=== PATIENT | female | born 1955 | race Caucasian/White ===

== ENCOUNTER 2017-09-26 11:52 | Emergency (ER) | payer OTHER ==
[~2017-09-26] VITALS: Ht 157.5 cm; Wt 80.5 kg
[2017-09-26] MEDS ORDERED: LEVOTHYROXIN0.088 MG PO (12:03)
[2017-09-26] MEDS ORDERED: ACETAMINOPHEN325 M1 (12:14)
[2017-09-26] MEDS ORDERED: GOOD NEIGHBOR200 M3 PO (12:14)
[2017-09-26 13:57] VITALS: BP 174/76
== END 2017-09-26 13:58 | disposition home or self-care (01) ==
LOC: ED 11:52
DX: S20.212A Contusion of left front wall of thorax, initial encounter (principal); S40.012A Contusion of left shoulder, initial encounter; W01.10XA Fall on same level from slipping, tripping and stumbling with subsequent striking against unspecified object, initial encounter; Y92.59 Other trade areas as the place of occurrence of the external cause; F17.200 Nicotine dependence, unspecified, uncomplicated